=== PATIENT | male | born 1970 | race Caucasian/White ===

== ENCOUNTER 2024-11-20 01:35 | Emergency (ER) | payer OTHER, SELFPAY ==
[2024-11-20 01:36] VITALS: BP 142/99
--- NOTE | 2024-11-20 02:07 | ED.GENMED ---
History of Present Illness
General
Chief Complaint: Flank Pain
Source: patient and previous hospital records (Previous ED visit for similar left flank pain complaint 2015. Was found to have 7 mm stone distal left ureter. Patient states he passed this the following day.)
Exam Limitations: none
Time Seen by Provider: 11/20/24 01:57
Nursing documentation reviewed up to this point in time: agreed with
History of Present Illness
History of Present Illness:
This is a 54-year-old gentleman who has history of kidney stones who states he generally passes a stone from his right kidney generally once per year and tends to pass these uneventfully.
Previous left renal colic with moderate persistent pain for a day or 11/2015 where he was evaluated in this ED at that time and ultrasound showed mild left-sided hydronephrosis with 7 mm distal left ureteric stone. He states after that ED visit in
2015 he passed that stone within 24 hours.
Since yesterday morning he has had intermittent left flank pain, left groin pain, intermittent nausea with intermittent episodes of vomiting. Left flank pain has worsened tonight, unrelieved with a dose of oxycodone that he took a few hours ago, an
old prescription from a year or 2 ago.
He does have a urologist but admits that he is not followed up it at least 10 years as he generally passes the stones without incident.
He has not had a fever nor chills. No cough no chest pain or shortness of breath. No diarrhea or constipation. He does note mild dysuria but denies urinary frequency nor urgency nor gross hematuria.
Past History
Past History
ED Past Medical History: Other (Renal stones); Negative HTN, Hypercholesterolemia, IDDM or NIDDM
ED Past Surgical History: None and Other (Bilateral inguinal hernia repair)
Social History
Tobacco: Non-smoker
Drug: None
Personal: Single
Living: with family
Employment: Employed
Family History
Family History: Other (No significant)
Phy Exam
Physical Exam
Physical Exam:
GENERAL: Alert , in no apparent distress
EYE: anicteric
NECK: Supple, nontender, no meningismus, no significant adenopathy.
ENT: oral mucosa is moist. No rhinorrhea.
CARDIAC: Regular rate and rhythm. no murmur.
LUNGS: Clear breath sounds bilaterally, no acute respiratory distress, no wheezes/rales/rhonchi
ABDOMEN: Soft, nondistended, without focal tenderness, no r/g, mild left CVA tenderness with percussion. Normoactive BS.
NEUROLOGICAL: Alert and oriented x3, no focal neuro deficits. Gait is valenzuela and steady.
SKIN: Warm and dry, normal color, skin intact. No rash.
MUSCULOSKELETAL: No C/C/E. peripheral pulses are full and equal b/l. No palpable tenderness.
PSYCH: Normal and appropriate interaction.
Course
Orders/Labs/Results
Orders:
Orders
11/20/24 02:05
CT Abd/pel Without Iv Or Oral Urgent
Comment:
Reason For Exam: acute L flank pain w N/V
0.9% Sodium Chloride 1000 ml [Nss] 1,000 ml IV BOLUS
Ketorolac [Toradol] 30 mg IV NOW STA
Ondansetron Injectable [Zofran] 4 mg IV NOW STA
11/20/24 02:06
Basic Metabolic Panel Urgent
Complete Blood Count/With Diff Urgent
11/20/24 03:55
UA Reflex to Culture [Urinalysis Reflex To Culture] Urgent
Date Specimen was Collected: 11/20/24
Time Specimen was Collected: 02:03
Urine Microscopic Reflex Cult Urgent
Abnormal Lab Results
11/20/24 11/20/24
02:06 03:55
MCHC 37.3 H g/dL
(33.0-37.0)
Absolute Monos (auto) 0.9 H 10^3/uL
(0.1-0.6)
Monocytes % 11.2 H %
(1.7-9.3)
Sodium 134 L mmol/L
(135-145)
Carbon Dioxide 18 L mmol/L
(22-30)
Glucose 116 H mg/dl
(70-99)
Urine Ketones 1+ A
(Negative)
Ur Occult Blood Reflex 4+ A
(Negative)
Urine Bacteria (Reflex) Few A
(Negative)
Urine Albumin (Reflex) 1+ A
(Neg - Trace)
11/20/24 02:06
11/20/24 02:06
Vital Signs
Initial and Last Documented VS:
Initial Vital Signs
Temp Pulse Resp BP Pulse Ox
98.2 F 76 22 142/99 100
11/20/24 01:36 11/20/24 01:36 11/20/24 01:36 11/20/24 01:36 11/20/24 01:36
Last Documented Vital Signs
Temp Pulse Resp BP Pulse Ox
98.2 F 72 18 122/70 99
11/20/24 01:36 11/20/24 04:05 11/20/24 04:05 11/20/24 04:05 11/20/24 04:05
MDM/Problems Addressed
Differential Diagnosis Includes:
Concern for left ureteral calculus, pyelonephritis. Other consideration is musculoskeletal back pain, bowel obstruction, occult inguinal hernia.
Will medicate for pain and nausea.
Will check labs, urinalysis and will plan for CT abdomen pelvis.
Chronic conditions affecting care: Previous abdomnial surgery (Previous inguinal hernia repair) and Other (History of kidney stones)
*Radiology
Radiology exam reviewed: radiology read reviewed
*Pulse Oximetry
Patient hypoxic: no
*Critical Care Note
Total Time (30-74mins, 75-104mins- exclusive of procedures): Not Applicable
Update Note
Update Note:
06:15
Patient remains pain-free and comfortable after initial IV dose of Toradol.
CAT scan shows proximal left ureteric stone with mild hydronephrosis.
Labs are reassuring and within normal limits. Urinalysis shows few bacteria but only 3-5 WBCs, not consistent with UTI.
Will discharge to home with prescription for Percocet for as needed pain, prescription for oral Toradol to be taken 4 times daily over the next 3 to 4 days or until stone passes. Prescription for Zofran for as needed nausea.
Will refer to urology for follow-up.
Return precautions discussed.
ED Attending Note
-
Portions of this chart may have been created with voice recognition software.� Occasional wrong word or��sound alike� substitutions may have occurred due to the inherent limitations of voice recognition software.
Discharge Plan
Departure
Patient Disposition: Home (Routine Discharge)
Date of Disposition: 11/20/24
Time of Disposition: 06:07
Patient with high blood pressure during this ER visit?: No
Condition: Good
Discharge Problem:
Calculus of proximal left ureter
Instructions: Kidney Stones (DC)
Prescriptions:
New
ketorolac 10 mg tablet
10 mg PO Q6H 5 Days Qty: 20 0RF
oxycodone-acetaminophen [Percocet] 5-325 mg Tablet
1 tab PO Q6HPRN PRN (Reason: pain) Qty: 10 0RF
ondansetron 4 mg tablet,disintegrating
4 mg PO QID PRN (Reason: nausea and vomiting) Qty: 20 0RF
No Action
dextromethorphan HBr 15 MG strip
2 oz PO PRN (Reason: cold)
valacyclovir [Valtrex] 1,000 MG tablet
1,000 mg PO TID Qty: 21 0RF
prednisone 20 MG tablet
60 mg PO DAILY Qty: 15 0RF
ondansetron HCl 4 MG tablet
4 mg PO Q8HPRN PRN (Reason: nausea) Qty: 20 0RF
tamsulosin 0.4 MG capsule
0.4 mg PO DAILY Qty: 5 0RF
oxycodone-acetaminophen 5 MG/325 MG tablet
1 - 2 tab PO Q4HPRN PRN (Reason: severe pain) Qty: 10 0RF
Referrals:
Neeraj Torrez DO [Family Provider] -
Iglesia Garcia Jr., MD [Active] - Call in 1-3 days for appt
Interventions
Interventions:
*Risk Screen - Suicide Last Done: 11/20/24 01:36
*General Assessment Last Done: 11/20/24 04:07
*Neglect/Abuse Screening Last Done: 11/20/24 01:36
ED- Fall Risk Assessment Last Done: 11/20/24 02:16
*ED COVID-19 Vaccine History Last Done: 11/20/24 04:09
AV-Gjvliv-Xpxeidcszh Assessment Last Done: 11/20/24 02:16
ED-Male Genitourinary Assessment Last Done: 11/20/24 02:16
Discharge Date and Time
Print Language: LIBERIAN
[2024-11-20] MEDS: TORADOL 30 MG IV (02:10)
[2024-11-20] MEDS: ZOFRAN 4 MG IV (02:10)
[2024-11-20] MEDS: NSS 1000 IV (02:10)
[2024-11-20 02:13] VITALS: BP 123/77
[2024-11-20 02:14] VITALS: BMI 26.7
[2024-11-20 02:36] LABS: % Basophils 0.2 % (0-2); % Eosinophils 1.3 % (0-6); % Immature Granulocytes 0.2 % (0-0.5); % Lymphocytes 20.8 % (20.5-51.1); % Monocytes 11.2 % (1.7-9.3); % Neutrophils 66.3 % (42.2-75.2); Absolute Eosinophils 0.1 10^3/uL (0-0.7); Absolute Lymphocytes 1.7 10^3/uL (1.2-3.4); Absolute Monocytes 0.9 10^3/uL (0.1-0.6); Absolute Neutrophils 5.5 10^3/uL (1.4-6.5); Hematocrit 40.8 % (39.0-52.0); Hemoglobin 15.2 g/dL (13.0-18.0); Mean Corp Hgb Conc. 37.3 g/dL (33.0-37.0); Mean Corpuscular Hgb 30.8 pg (27.0-31.0); Mean Corpuscular Volume 82.8 fL (80.0-94.0); Mean Platelet Volume 10.2 fL (7.4-10.4); Nucleated Red Blood Cells % 0 % (-); Platelet Count 226 10^3/uL (130-400); Red Blood Cell Count 4.93 10^6/uL (4.70-6.10); Red Cell Dist. Width 11.9 % (11.5-14.5); White Blood Cell Count 8.3 10^3/uL (4.8-10.8)
[2024-11-20 02:45] LABS: Blood Urea Nitrogen 17 mg/dl (9-20); Calcium 9.2 mg/dl (8.4-10.2); Carbon Dioxide 18 mmol/L (22-30); Chloride 102 mmol/L (98-107); Estimated Creatinine Clearance 69 ml/min; Glucose 116 mg/dl (70-99); Potassium 4.3 mmol/L (3.5-5.1); Sodium 134 mmol/L (135-145); eGFR > 60.00
[2024-11-20 04:05] VITALS: BP 122/70
[2024-11-20 04:15] LABS: Urine Albumin 1+ (Neg - Trace); Urine Bilirubin Negative (Negative); Urine Character Clear (Clear); Urine Color Yellow; Urine Glucose Negative (Negative); Urine Ketone 1+ (Negative); Urine Leukocyte Negative (Negative); Urine Nitrite Negative (Negative); Urine Occult Blood 4+ (Negative); Urine Specific Gravity 1.015 (<1.030); Urine Urobilinogen Negative (Neg - 1+)
[2024-11-20 04:41] LABS: Urine Bacteria Few (Negative); Urine Red Blood Cell 0-2 /HPF (0-2); Urine Squamous Cell 0-2 /LPF (Few)
[2024-11-20 06:05] VITALS: BP 118/69
[2024-11-20] MEDS: TORADOL 15 MG IV (06:24)
== END 2024-11-20 06:26 | disposition home or self-care (01) ==
LOC: EMR 01:35
PROVIDERS: EMERGENCY PHYSICIAN Emergency Medicine; FAMILY PHYSICIAN Family Medicine
DX: N13.2 Hydronephrosis with renal and ureteral calculous obstruction (principal)
CPT/HCPCS: 99284; 96374; 96375 ×2; 96361; 74176; 80048; 81003; 81015; 85025

== ENCOUNTER 2024-12-11 06:24 | Day surgery (SDC) | payer OTHER, SELFPAY ==
[2024-12-09 14:01] VITALS: BMI 25.8
[2024-12-11] VITALS (8 sets, daily range): BP systolic 122–138; BP diastolic 85–89; BMI 25.8
[2024-12-11] MEDS: NORMOSOL-R/PLASMALYTE-A 1000 IV (13:07)
[2024-12-11] MEDS: ACULAR 0.5% EYE DROPS 1 DROP OPHTH (13:34)
[2024-12-11] MEDS: FLOMAX 0.4 MG PO (16:50)
[2024-12-11] MEDS: Pyridium 200 MG PO (16:50)
[2024-12-11] MEDS: ROXICODONE 5 MG PO (17:49)
== END 2024-12-11 18:07 | disposition home or self-care (01) ==
LOC: SDS 06:24
PROVIDERS: ATTENDING PHYSICIAN Specialist; FAMILY PHYSICIAN Family Medicine
DX: N20.1 Calculus of ureter (principal)
CPT/HCPCS: 52356; 36415; 74018; 76000; 82365; 93005; C2617